=== PATIENT | male | born 1980 | race Caucasian/White ===

== ENCOUNTER 2017-09-09 10:45 | Observation (INO) ==
[2017-09-09 11:42] LABS: Basophils # 0.1 K/mcL (0.0-0.2); Basophils % 1.5 %; Eosinophils # 0.2 K/mcL (0.0-0.6); Hematocrit 59.8 % (37.5-50.1); Hemoglobin 20.1 g/dL (12.9-16.9); Immature Granulocytes % 0.2 % (0-4); Lymphocytes # 1.9 K/mcL (0.6-4.6); Lymphocytes % 36.5 %; Mean Corpuscular HGB Conc 33.6 g/dL (31.6-35.5); Mean Corpuscular Hemoglobin 34.1 pg (28.0-33.3); Mean Corpuscular Volume 101.5 fL (83.0-100.0); Mean Platelet Volume 11.5 fL (9.4-12.4); Monocytes # 0.6 K/mcL (0.0-1.3); Monocytes % 10.8 %; Neutrophils # 2.5 K/mcL (1.6-8.9); Platelet Count 186 K/mcL (140-400); Red Blood Count 5.89 M/mcL (4.19-5.50); Red Cell Distribution Width 14.1 % (11.5-14.5)
--- NOTE | 2017-09-09 11:55 | Emergency Department Note ---
Disposition Clinical Impression: Acute anxiety, Nonverbal, Hyperkalemia Depression Qualifiers: Depression Type: unspecified Qualified Code(s): F32.9 - Major depressive disorder, single episode, unspecified Deaf Qualifiers: Laterality: unspecified laterality Qualified Code(s): H91.90 - Unspecified hearing loss, unspecified ear Disposition: Admitted As Inpatient Condition: Fair Referrals: NONE,PCP [Primary Care Provider] - Forms: ED Satisfaction Letter Time of Disposition: 15:35 General Adult HPI - General Chief complaint: ED Psychiatric Symptoms Stated complaint: "anxiety,depression" Time Seen by Provider: 09/09/17 11:07 Source: patient Mode of arrival: ambulatory Limitations: language barrier Nursing Notes Reviewed: Yes Vital Signs Reviewed: Yes - History of Present Illness HPI Narrative: Patient presents emergency room in the care of the family with a complaint of depression and anxiety. Patient is nonverbal and . He also is now formally trained in sign language and communicates by signals and gestures that of been understood and created with the family. Only the family is able to communicate with him. Patient is unable to write and can only write his name. According to the family he denies any other symptoms or issues except that he has not been able to sleep and then at other times feels like he does not Ronel do anything and just wants to sit on the couch. No other acute issues or complaints per the father who is the primary care provider to the patient. Onset (ago): day(s) Radiation: non-radiation Pain Scale: 0 Consistency: constant Improves with: nothing Worsens with: nothing Associated symptoms: Reports: denies other symptoms Treatments Prior to Arrival: none - Related Data Home Medications Medication Instructions Recorded Confirmed Atenolol [Tenormin] 25 mg PO DAILY 09/09/17 Atenolol [Tenormin] 50 mg PO DAILY 09/09/17 Allergies Allergy/AdvReac Type Severity Reaction Status Date / Time azithromycin Allergy Rash Verified 01/29/15 17:16 All systems ED: reviewed and negative except as stated. Review of Systems: As Per HPI Constitutional: Denies: fever, chills Cardiovascular: Denies: chest pain, palpitations, dyspnea on exertion, orthopnea , edema Respiratory: Denies: cough, dyspnea, wheezes Gastrointestinal: Denies: abdominal pain, nausea, vomiting, diarrhea Musculoskeletal: Denies: back pain, neck pain Integumentary: Denies: rash Neurological: Denies: headache Psychiatric: Reports: depression, other Past Medical History - Past Medical History Attestation: Yes The following information was validated with the patient. Source: obtained from family Medical history: Reports: valvular heart disease, other Surgical history: Reports: other Psychiatric history: Reports: no psych history - Social History Smoking Status: Never smoker Smokeless Tobacco Status: No Alcohol use: Reports: none Drug use: Reports: none Physical Exam - General Limitations: language barrier General appearance: alert, in no apparent distress - Head Head exam: atraumatic, normocephalic, normal inspection - Eye Eye exam: Present: PERRL, EOMI - ENT ENT exam: normal exam, normal oropharynx, mucous membranes moist - Neck Neck exam: Present: normal inspection, full ROM, trachea midline - Chest Chest inspection: Present: normal inspection, symmetric chest wall rise - Respiratory Respiratory exam: Present: normal lung sounds bilaterally. Absent: respiratory distress - Cardiovascular Cardiovascular exam: Present: normal rhythm - Abdominal Exam Abdominal exam: Present: soft, Non-Tender. Absent: tenderness, distention, guarding, rebound, rigidity - Extremities Exam Extremities exam: Present: normal inspection - Back Exam Back exam: Present: normal inspection - Neurological Exam Neurological exam: Present: alert, CN II-XII intact - Psychiatric Psychiatric exam: Present: flat affect - Skin Skin exam: Present: warm, dry, intact, normal color Course Course Narrative: Patient seen and examined the time of arrival. See history of present illness. 37-year-old male who is nonverbal and presents emergency room at the request of the family for evaluation of anxiety and depression. Patient is not formally trained in sign language. He also does not have the ability to write. Patient's mental status is confirmed by the father and other family members are here with him. Denied patient having any other complaints or issues. The only way to communicate with the patient this time is to the family considering they have a developed means of conversation that is not formally trained. Patient does not sign and does not have any other means of treating medication except for the homemade sign language as they have created. This was ran through the medical legal department here in the hospital they recommended continuing 4 with the patient's care as best as possible considering the family will be the package sealer machine for the patient's care and recommended medical conditions. Patient was brought into the emergency room today secondary to the concern for depression and anxiety. Patient is not able to sleep at home and then goes through mood swings from other being manic and unable to sit still to the Jered sitting at the end of the couch and not moving or doing anything. Otherwise the family denies any complaint of chest pain shortness of breath headache vision changes nausea vomiting or diarrhea. No recent fevers or chills. No medications changes. 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 Patient otherwise has no other medical conditions this time. Physical exam is unremarkable. Lungs are clear heart appears to be regular EKG was collected with chronic abnormalities of the stable in comparison to previous. Chest x- ray CBC chemistry screening labs for psychiatric evaluation also be started. Patient otherwise has no signs of trauma or injury. He does have chronic mottling to the skin the distal aspect of the extremities but has no visible signs of cyanosis cellulitis or infection. Disposition treatment course are difficult to ascertain secondary to the inability to communicate directly with the patient will relying solely on the father who is at the bedside to converse and described the patient's symptoms or complaints. Again there is no way to directly converse with the patient considering he has no formal training in sign language or other means of communication at this time. No package sealer machine will be called in at this point considering there is no appropriate package sealer machine to contact. Patient will be screened here in the emergency room and evaluation will be completed - Reevaluation(s) Reevaluation #1: Patient's medical clearance was unable to be completed this time. His sodium is low 132 potassium is 5.3. Is a new finding for him. He does chronically elevated liver function as well as bilirubin. Otherwise is asymptomatic and has no other complaints after discussion with the father who is at the bedside. Because of the etiology being unknown. The lab abnormalities patient will be admitted to the medical service. Fluids and second dose of Lasix were given considering the patient's renal function is normal. No other acute abnormalities were noted during treatment course here today. Patient denied chest pain or shortness of breath and fevers and chills. Patient will be admitted. The hospitalist Dr. Patrick. Is comfortable with the plan for diuretics to lower the potassium at this point not aggressively getting calcium gluconate, Kayexalate or insulin dextrose at this point. Patient will be admitted for definitive management. No other acute pathology noted. Consultation was placed to psychiatry team further insight during the hospital stay Time: 15:32 Vital Signs Temperature 97.3 F L 09/09/17 10:46 Pulse Rate 80 09/09/17 10:46 Respiratory Rate 18 09/09/17 10:46 Blood Pressure 157/92 09/09/17 10:46 O2 Sat by Pulse Oximetry 85 09/09/17 10:46 Temperature 97.3 F L 09/09/17 11:20 Pulse Rate 82 09/09/17 12:24 Respiratory Rate 18 09/09/17 12:24 Blood Pressure 141/86 09/09/17 12:24 O2 Sat by Pulse Oximetry 90 09/09/17 12:24 Oxygen Delivery Oxygen Delivery Room Air Medical Decision Making - MDM Narrative Medical decision making narrative: Anxiety, depression - Medical Records Medical records reviewed: Yes I reviewed the patient's medical records. - Lab Data Lab results reviewed: Yes I reviewed the patient's lab results. Result diagrams: 09/09/17 11:28 09/09/17 13:13 Lab Results 09/09/17 09/09/17 09/09/17 Range/Units 11:28 11:28 11:28 WBC 5.3 (4.3-11.1) K/mcL RBC 5.89 H (4.19-5.50) M/mcL Hgb 20.1 H (12.9-16.9) g/dL Hct 59.8 H (37.5-50.1) % MCV 101.5 H (83.0-100.0) fL MCH 34.1 H (28.0-33.3) pg MCHC 33.6 (31.6-35.5) g/dL RDW 14.1 (11.5-14.5) % Plt Count 186 (140-400) K/mcL MPV 11.5 (9.4-12.4) fL Immature Gran % 0.2 (0-4) % Seg Neutrophils % 48.0 % Lymphocytes % 36.5 % Monocytes % 10.8 % Eosinophils % 3.0 % Basophils % 1.5 % Neutrophils # 2.5 (1.6-8.9) K/mcL Lymphocytes # 1.9 (0.6-4.6) K/mcL Monocytes # 0.6 (0.0-1.3) K/mcL Eosinophils # 0.2 (0.0-0.6) K/mcL Basophils # 0.1 (0.0-0.2) K/mcL Sodium Cancelled Potassium Cancelled Chloride Cancelled Carbon Dioxide Cancelled BUN Cancelled Creatinine Cancelled Est GFR ( Amer) Cancelled Est GFR (Non-Af Amer) Cancelled BUN/Creatinine Ratio Cancelled Glucose Cancelled Calculated Osmolality Cancelled Calcium Cancelled Total Bilirubin Cancelled Direct Bilirubin Cancelled Indirect Bilirubin Cancelled AST Cancelled ALT Cancelled Alkaline Phosphatase Cancelled Serum Total Protein Cancelled Albumin Cancelled Globulin Cancelled Albumin/Globulin Ratio Cancelled TSH 4.532 (0.340-5.600) mcIU/mL Urine Color (Yellow) Urine Clarity (Clear) Urine pH (5.0-8.0) pH Units Ur Specific [place] (1.010-1.025) Urine Protein (Neg-Trace) mg/dL Urine Glucose (UA) (Normal) mg/dL Urine Ketones (Negative) mg/dL Urine Blood (Negative) Urine Nitrite (Negative) Urine Bilirubin (Negative) Urine Urobilinogen (Normal) mg/dL Ur Leukocyte Esterase (Negative) Urine Microscopic RBC (0-3) per hpf Urine Microscopic WBC (0-3) per hpf Ur Squamous Epith Cells (None-Few) per lpf Urine Bacteria (None-Few) per hpf Hyaline Casts (None-Few) per lpf Salicylates < 2.5 L (15.0-30.0) mg/dL Urine Opiates Screen (Mydgnv=416) ng/mL Acetaminophen < 10 L (10-20) mcg/mL Ur Barbiturates Screen (Wuijsa=299) ng/mL Ur Phencyclidine Scrn (Cutoff=25) ng/mL Ur Amphetamines Screen (Gfpyce=7192) ng/mL U Benzodiazepines Scrn (Zfdmns=732) ng/mL Urine Cocaine Screen (Cutoff= 300) ng/mL U Marijuana (THC) Screen (Cutoff = 50) ng/mL Ethyl Alcohol < 10 (Less than 10) mg/dL Specimen Rejected Hemolyzed 09/09/17 09/09/17 09/09/17 Range/Units 11:50 11:56 13:13 WBC (4.3-11.1) K/mcL RBC (4.19-5.50) M/mcL Hgb (12.9-16.9) g/dL Hct (37.5-50.1) % MCV (83.0-100.0) fL MCH (28.0-33.3) pg MCHC (31.6-35.5) g/dL RDW (11.5-14.5) % Plt Count (140-400) K/mcL MPV (9.4-12.4) fL Immature Gran % (0-4) % Seg Neutrophils % % Lymphocytes % % Monocytes % % Eosinophils % % Basophils % % Neutrophils # (1.6-8.9) K/mcL Lymphocytes # (0.6-4.6) K/mcL Monocytes # (0.0-1.3) K/mcL Eosinophils # (0.0-0.6) K/mcL Basophils # (0.0-0.2) K/mcL Sodium 132 L Potassium 5.3 H Chloride 103 Carbon Dioxide 21 L BUN 23 H Creatinine 0.74 Est GFR ( Amer) > 60 Est GFR (Non-Af Amer) > 60 BUN/Creatinine Ratio 31 H Glucose 117 H Calculated Osmolality 279 L Calcium 9.1 Total Bilirubin 1.2 H Direct Bilirubin 0.1 Indirect Bilirubin 1.1 AST 60 H ALT 69 H Alkaline Phosphatase 228 H Serum Total Protein 6.5 Albumin 3.8 Globulin 2.7 Albumin/Globulin Ratio 1.4 TSH (0.340-5.600) mcIU/mL Urine Color Dark Yellow (Yellow) Urine Clarity Clear (Clear) Urine pH 5.5 (5.0-8.0) pH Units Ur Specific [place] 1.026 H (1.010-1.025) Urine Protein >=300 H (Neg-Trace) mg/dL Urine Glucose (UA) Normal (Normal) mg/dL Urine Ketones Negative (Negative) mg/dL Urine Blood Trace H (Negative) Urine Nitrite Negative (Negative) Urine Bilirubin Small H (Negative) Urine Urobilinogen Normal (Normal) mg/dL Ur Leukocyte Esterase Negative (Negative) Urine Microscopic RBC 3-5 H (0-3) per hpf Urine Microscopic WBC 0-3 (0-3) per hpf Ur Squamous Epith Cells Moderate H (None-Few) per lpf Urine Bacteria None Seen (None-Few) per hpf Hyaline Casts None Seen (None-Few) per lpf Salicylates (15.0-30.0) mg/dL Urine Opiates Screen Negative (Jpqvsg=328) ng/mL Acetaminophen (10-20) mcg/mL Ur Barbiturates Screen Negative (Oxewue=677) ng/mL Ur Phencyclidine Scrn Negative (Cutoff=25) ng/mL Ur Amphetamines Screen Negative (Uellea=0867) ng/mL U Benzodiazepines Scrn Negative (Fwtkqy=000) ng/mL Urine Cocaine Screen Negative (Cutoff= 300) ng/mL U Marijuana (THC) Screen Negative (Cutoff = 50) ng/mL Ethyl Alcohol (Less than 10) mg/dL Specimen Rejected - EKG Data EKG #1 EKG attestation: Yes I reviewed and interpreted this EKG. EKG results narrative: EKG shows chronic abnormalities. Sinus rhythm with premature ventricular complexes. Ventricular rate of 81. CA interval 200. QRS duration of 188. QTC of 517. This was compared to a previous EKG on 10/25/15 and shows consistent appropriate intervals. No acute signs of ST segment elevation abnormality or myocardial infarction at this time. No acute signs of WPW or Brugada syndrome.
[2017-09-09 12:27] LABS: Acetaminophen < 10 mcg/mL (10-20); Thyroid Stimulating Hormone 4.532 mcIU/mL (0.340-5.600)
[2017-09-09 12:35] LABS: Ethanol < 10 mg/dL (Less than 10); Salicylate < 2.5 mg/dL (15.0-30.0)
[2017-09-09 12:55] LABS: Bilirubin,Urine Small (Negative); Blood,Urine Trace (Negative); Clarity,Urine Clear (Clear); Color,Urine Dark Yellow (Yellow); Glucose,Urine (UA) Normal (Normal); Ketones,Urine Negative (Negative); Leukocyte Esterase,Urine Negative (Negative); Nitrite,Urine Negative (Negative); PH,Urine 5.5 pH Units (5.0-8.0); Protein,Urine >=300 mg/dL (Neg-Trace); Specific Gravity,Urine 1.026 (1.010-1.025); Urobilinogen,Urine Normal (Normal)
[2017-09-09 12:58] LABS: Bacteria,Urine None Seen per hpf (None-Few); Hyaline Casts,Urine None Seen per lpf (None-Few); Squamous Epithelial Cell,Urine Moderate per lpf (None-Few); WBC,Urine 0-3 per hpf (0-3)
[2017-09-09 13:43] LABS: Amphetamine Screen,Urine Negative ng/mL (Cutoff=1000); Barbiturate Screen,Urine Negative ng/mL (Cutoff=200); Benzodiazepines Screen,Urine Negative ng/mL (Cutoff=200); Cannabinoid Screen,Urine Negative ng/mL (Cutoff = 50); Cocaine Screen,Urine Negative ng/mL (Cutoff= 300); Opiate Screen,Urine Negative ng/mL (Cutoff=300); Phencyclidine Screen,Urine Negative ng/mL (Cutoff=25)
[2017-09-09 14:44] LABS: Alanine Aminotransferase 69 Units/L (7-52); Albumin 3.8 g/dL (3.5-5.7); Albumin/Globulin Ratio 1.4 (1.1-2.2); Alkaline Phosphatase 228 Units/L (34-104); Aspartate Amino Transferase 60 Units/L (13-39); BUN/Creatinine Ratio 31 (6-26); Bilirubin,Indirect 1.1 mg/dL (0.0-1.2); Bilirubin,Total 1.2 mg/dL (0.3-1.0); Blood Urea Nitrogen 23 mg/dL (6-20); Calcium 9.1 mg/dL (8.6-10.3); Carbon Dioxide 21 mEq/L (23-29); Chloride 103 mEq/L (98-107); Globulin 2.7 g/dL (2.4-3.5); Glucose 117 mg/dL (70-105); Osmolality,Calculated 279 (280-300); Potassium 5.3 mEq/L (3.5-5.1); Sodium 132 mEq/L (136-145); Total Protein 6.5 g/dL (6.4-8.9); eGFR For African Americans > 60 (> 60); eGFR For Non-African Americans > 60 (> 60)
[2017-09-09 14:45] LABS: Bilirubin,Direct 0.1 mg/dL (0.0-0.2)
[2017-09-09] MEDS ORDERED: 0.9 % Sodium Chloride 1,000 ML IVC ONE (15:00)
[2017-09-09] MEDS ORDERED: Furosemide 20 MG/2 ML VIAL IVP ONE (15:01)
[2017-09-09] MEDS ORDERED: Naloxone 0.4 MG/ML INJ IVP PRN (18:05)
[2017-09-09] MEDS ORDERED: Acetaminophen 325 MG TABLET PO PRN (18:05)
[2017-09-09] MEDS ORDERED: *HR* LORazepam 2 MG/ML VIAL IVP PRN (18:09)
[2017-09-09] MEDS: 0.9 % Sodium Chloride 1,000 ML IVC SCH (18:14)
--- NOTE | 2017-09-09 18:14 | Internal Med History&Physical ---
Date of Encounter: 09/09/17 Time of Encounter: 17:37 Internal Medicine - H&P: HPI Chief complaint: Anxiety Admitted From: Emergency Dept Plans for Post Hospital Care: Home History of present illness: Mr. Espinoza is a 37 year old male with PMH of Ebstein's anomaly of heart, non- verbal, deaf, and illiterate, who presented to ED today with father who states that he has been acting anxious. This has been going on for last several months. Father states that patient's mother about 1 year ago. Recently, he has been acting anxious and waking up from sleeping shaking and scared, as if he had a nightmare. Sometimes he wakes up suddenly and violently , and hits his arms or legs on something. Patient is non-verbal and cannot communicate to me. However, father can communicate with hand gestures. Father states that patient is doing ok at this time. Patient currently shows no signs of anxiety at this time. In the ED, workup was negative except mild hyperkalemia to 5.2. He received 1L IV NS and lasix 20 mg IV once in ED. Psychiatrist has been consulted by ED, and they agree to see patient. I am unable to perform a ROS on patient because of his non-verbal and deaf state. Past Med Surg Social Fam HX - Past Medical History Source: obtained from family Medical history: valvular heart disease, other Additional medical history: meningitis Psychiatric history: no psych history - Past Surgical History Surgical History: other Additional surgical history: valvular heart - Social History Smoking Status: Never smoker Smokeless Tobacco Status: No Alcohol use: none Drug use: none - Family History Mother Living Status: Age at : 47 Cause of : CT Hx Family Cardiac Disorders: Yes Father Living Status: Still Living Sister Age: 38 Living Status: Still Living Hx Family Cardiac Disorders: Yes Hx Family Neurologic Disorders: Yes (CVA) - Additional Family History Additional family history: Family history verified with father. Internal Medicine - H&P: Meds Aspirin [Lo-Dose Aspirin EC] 81 mg PO DAILY 09/09/17 [History] Atenolol [Tenormin] 25 mg PO QPM 09/09/17 [History] Atenolol [Tenormin] 50 mg PO QAM 09/09/17 [History] 3 Allergy/AdvReac Type Severity Reaction Status Date / Time azithromycin Allergy Rash Verified 01/29/15 17:16 All Systems PM: Unable to perform due to patient condition of non-verbal and deaf status. - Constitutional Vitals: Temp Pulse Resp BP Pulse Ox 98.1 F 100 17 143/96 92 09/09/17 16:50 09/09/17 16:50 09/09/17 16:50 09/09/17 16:50 09/09/17 16:50 General appearance: Present: cooperative, pleasant, no acute distress. Absent: answers questions appropriately Exam: Non-verbal - Head Head exam: Present: atraumatic, normal inspection, normocephalic - Eye Eye exam: Present: EOMI, PERRL. Absent: conjunctival injection, nystagmus, scleral icterus - ENT ENT exam: Present: mucous membranes moist, normal external ear exam, normal oropharynx Additional comments: Deaf - Neck Neck exam general surgery: Present: supple, trachea midline. Absent: lymphadenopathy, tenderness, thyromegaly - Respiratory Respiratory exam: Present: CTAB. Absent: accessory muscle use, rales, rhonchi, wheezes Additional comments: Normal WOB - Cardiovascular Cardiovascular exam: Present: RRR, +S1, +S2, systolic murmur. Absent: diastolic murmur, gallop, rubs Additional comments: No BLE edema - GI/Abdominal GI/Abdominal exam: Present: normal bowel sounds, soft. Absent: distended, hepatomegaly, mass, splenomegaly, tenderness - Neurological Exam Neurological exam: Present: alert, no focal deficits, strengths equal and symetr throughout, speech deficit (Non-verbal). Absent: motor sensory deficit, facial droop Additional comments: Unable to fully evaluate due to patient condition of non-verbal and deaf status - Psychiatric Psychiatric exam: Present: normal affect, normal mood. Absent: agitated, anxious, depressed Additional comments: Unable to fully evaluate due to patient condition of non-verbal and deaf status. - Skin Skin exam: Present: dry, intact, warm. Absent: cyanosis, rash Internal Med - H&P Results - Labs CBC & Chem 7: 09/09/17 11:28 09/09/17 13:13 - VTE Documentation of Mechanical Device: Intermittent pneumatic compression device - Assessment and plan (1) Hyperkalemia Current Visit: Yes Status: Acute Assessment and plan: Mild. Admit for observation with telemetry. Continue IV NS at 100 ml/hr. Monitor strict I&Os. Give kayexalate 30 gram PO once. Recheck BMP in AM. (2) Acute anxiety Current Visit: Yes Status: Acute Assessment and plan: Psychiatry consulted; appreciate input. Start ativan 1 mg IV Q6H PRN anxiety. (3) Ebstein anomaly Current Visit: Yes Status: Acute Assessment and plan: Continue home medications. Continue telemetry. (4) Deaf Current Visit: Yes Status: Acute Assessment and plan: Speech therapy consulted. Qualifiers: Laterality: bilateral Qualified Code(s): H91.93 - Unspecified hearing loss , bilateral (5) Nonverbal Current Visit: Yes Status: Acute Assessment and plan: Speech therapy consulted. (6) DVT prophylaxis Current Visit: Yes Status: Acute Assessment and plan: Low-risk. Start SCDs. - Time Spent With Patient Total time spent is greater than 50% in coordination of care (as documented) at patient's floor/unit and/or counseling patient: less than 15 minutes
[2017-09-09] MEDS: Aspirin Enteric Coated 81 MG Tablet PO SCH (18:26)
[2017-09-10] MEDS: 0.9 % Sodium Chloride 1,000 ML IVC SCH ×2 (04:16→16:23)
[2017-09-10 05:39] LABS: Basophils # 0.1 K/mcL (0.0-0.2); Basophils % 0.9 %; Eosinophils # 0.1 K/mcL (0.0-0.6); Eosinophils % 1.4 %; Hematocrit 53.2 % (37.5-50.1); Immature Granulocytes % 0.2 % (0-4); Lymphocytes # 1.6 K/mcL (0.6-4.6); Lymphocytes % 27.7 %; Mean Corpuscular HGB Conc 34.8 g/dL (31.6-35.5); Mean Corpuscular Volume 97.8 fL (83.0-100.0); Monocytes # 0.7 K/mcL (0.0-1.3); Monocytes % 11.1 %; Neutrophils # 3.5 K/mcL (1.6-8.9); Platelet Count 157 K/mcL (140-400); Red Blood Count 5.44 M/mcL (4.19-5.50); Red Cell Distribution Width 13.8 % (11.5-14.5); Segmented Neutrophils % 58.7 %
[2017-09-10 05:42] LABS: Hemoglobin 18.5 g/dL (12.9-16.9)
[2017-09-10 05:47] LABS: BUN/Creatinine Ratio 23 (6-26); Blood Urea Nitrogen 19 mg/dL (6-20); Calcium 7.9 mg/dL (8.6-10.3); Carbon Dioxide 22 mEq/L (23-29); Chloride 105 mEq/L (98-107); Chol/HDL Ratio 4.2 (0-4.9); Cholesterol 183 mg/dL (< 200); Glucose 88 mg/dL (70-105); HDL Cholesterol 44 mg/dL (40-59); LDL Cholesterol,Calculated 111 mg/dL (0-99); Magnesium 1.6 mg/dL (1.6-2.6); Osmolality,Calculated 284 (280-300); Potassium 3.9 mEq/L (3.5-5.1); Sodium 136 mEq/L (136-145); Triglycerides 139 mg/dL (< 150); eGFR For African Americans > 60 (> 60); eGFR For Non-African Americans > 60 (> 60)
[2017-09-10] MEDS: Aspirin Enteric Coated 81 MG Tablet PO SCH (07:31)
[2017-09-10] MEDS ORDERED: *HR* LORazepam 2 MG/ML VIAL IVP PRN (09:51)
--- NOTE | 2017-09-10 10:17 | Internal Med Progress Note ---
Date of Encounter: 09/10/17 Time of Encounter: 10:15 - Assessment and plan (1) Acute anxiety Current Visit: Yes Status: Acute Assessment and plan: Patient is non-verbal, and deaf father at bedside to assisting with communication Reporting anxiety greater than 1 month with frequent nightime awakenings with panic attacks Patient followed reports lorazepam is helping with anxiety However, per my assessment patient still appears to be somewhat anxious Psychiatry consulted; appreciate input. Start citalopram 10 mg daily Start ativan 0.5 mg IV Q8H PRN anxiety. (2) Deaf Current Visit: Yes Status: Acute Assessment and plan: speech therapy to see Qualifiers: Laterality: bilateral Qualified Code(s): H91.93 - Unspecified hearing loss , bilateral (3) Nonverbal Current Visit: Yes Status: Acute (4) Hyperkalemia Current Visit: Yes Status: Acute Assessment and plan: Resolved Monitor strict I&Os Recheck BMP in AM continue IVF (5) Ebstein anomaly Current Visit: Yes Status: Acute Assessment and plan: History of Ebstein's anomaly Remote history of Bioprosthetic valve replacement Continue home medications. Continue telemetry. (6) Transaminitis Current Visit: Yes Status: Acute Assessment and plan: Etiology unclear No prior history of liver disease Does not appear jaundiced, sclera nonicteric Denies any weight loss, nausea, vomiting Recheck hepatic panel (7) DVT prophylaxis Current Visit: Yes Status: Acute Assessment and plan: Low-risk. Start SCDs, early ambulation as tolerated - Time Spent With Patient Total time spent is greater than 50% in coordination of care (as documented) at patient's floor/unit and/or counseling patient: 25 - 35 minutes - Subjective Interval history: Patient seen and examined at bedside today. No acute changes overnight. Patient is deaf and mute. Father bedside to assist with communication. Father is reporting that his anxiety is now subsided with the addition of anxiolytic medications. - Constitutional Vitals: Temp Pulse Resp BP Pulse Ox 98.4 F 81 18 131/86 90 09/10/17 08:32 09/10/17 08:32 09/10/17 08:32 09/10/17 08:32 09/10/17 08:32 General appearance: Present: cooperative, pleasant, no acute distress. Absent: answers questions appropriately - Head Head exam: Present: atraumatic, normocephalic - Eye Eye exam: Present: EOMI, PERRL, conjuntiva pink, sclera anicteric Pupils: Present: PERRL - Neck Neck exam general surgery: Present: supple, trachea midline. Absent: lymphadenopathy - Respiratory Respiratory exam: Present: CTAB. Absent: accessory muscle use, rales, rhonchi, wheezes - Cardiovascular Cardiovascular exam: Present: RRR, +S1, +S2. Absent: diastolic murmur, gallop, rubs, systolic murmur - GI/Abdominal GI/Abdominal exam: Present: normal bowel sounds, soft, no peritoneal signs. Absent: distended, tenderness - Extremities Exam Extremities exam: Present: warm, radial pulses palpable and symmetrical. Absent : calf tenderness, cyanotic, pedal edema - Neurological Exam Neurological exam: Present: CN II-XII intact, oriented X3, no focal deficits. Absent: pronater drift, facial droop, speech deficit - Skin Skin exam: Present: dry, intact, normal color, warm Internal Medicine: Result - Labs CBC & Chem 7: 09/10/17 04:24 09/10/17 04:24 Labs: Short CBC 09/10/17 Range/Units 04:24 WBC 5.9 (4.3-11.1) K/mcL Hgb 18.5 H D (12.9-16.9) g/dL Hct 53.2 H (37.5-50.1) % Plt Count 157 (140-400) K/mcL Neutrophils # 3.5 (1.6-8.9) K/mcL BMP 09/10/17 04:24 Sodium 136 Potassium 3.9 D Chloride 105 Carbon Dioxide 22 L BUN 19 Creatinine 0.81 Glucose 88 Calcium 7.9 L - VTE Documentation of Mechanical Device: Intermittent pneumatic compression device Consult Discharge Plan - Plan Referrals: NONE,PCP [Primary Care Provider] -
--- NOTE | 2017-09-10 10:46 | Electrocardiograph Report ---
[place] [facility] Test Date: 2017-09-09 Pat Name: Gera Espinoza Department: 103 Room: 3B23 Gender: M Mold Shifter: : 1980 Requested By: Lenin Bowser Order Number: [id number] Reading MD: Erick Anderson Measurements Intervals Sacul Rate: 81 P: 48 AL: 200 QRS: 95 QRSD: 188 T: 24 QT: 480 QTc: 517 Interpretive Statements SINUS RHYTHM WITH OCCASIONAL VENTRICULAR PREMATURE COMPLEXES RIGHT BUNDLE BRANCH BLOCK Electronically Signed On 09-10-2017 10:44:54 EDT by Erick Anderson
[2017-09-10 14:49] LABS: Albumin 3.4 g/dL (3.5-5.7)
[2017-09-10 15:27] LABS: Alanine Aminotransferase 65 Units/L (7-52); Albumin/Globulin Ratio 1.5 (1.1-2.2); Alkaline Phosphatase 190 Units/L (34-104); Aspartate Amino Transferase 57 Units/L (13-39); Bilirubin,Direct 0.2 mg/dL (0.0-0.2); Bilirubin,Indirect 1.2 mg/dL (0.0-1.2); Bilirubin,Total 1.4 mg/dL (0.3-1.0); Globulin 2.2 g/dL (2.4-3.5); Total Protein 5.6 g/dL (6.4-8.9)
[2017-09-11] MEDS: 0.9 % Sodium Chloride 1,000 ML IVC SCH
[2017-09-11] MEDS: Aspirin Enteric Coated 81 MG Tablet PO SCH (07:59)
--- NOTE | 2017-09-11 11:42 | Discharge Summary ---
- NOTES TO OUTPATIENT PROVIDER Notes to Outpatient Provider: Patient anxious on admission. Improved with anxiolytics. Patient being discharged on citalopram 10 mg daily. To follow-up with PCP within 1 week of discharge. Set follow-up with resident clinic physician. Nothing pending on discharge. Date of Encounter: 09/11/17 Time of Encounter: 11:40 - Discharge Diagnosis (1) Acute anxiety Priority: Primary Status: Acute Assessment and Plan: Resolved Patient is non-verbal, and deaf father at bedside to assisting with communication Reporting anxiety greater than 1 month with frequent nightime awakenings with panic attacks Received insulin therapy while inpatient and nighttime awakenings and panic attacks have resolved Started citalopram yesterday, Continue citalopram at discharge Uneventful hospital course. Panic attacks have resolved. Patient does not have a primary care provider. Will be set up with the resident clinic upon discharge with a follow-up within 1 week. Father has been notified that he would need to follow-up with PCP within 1 week of discharge. Father verbalizes understanding, denies any further questions. 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 Espinoza is a 37 year old male Please see assessment and plan for hospital course Discharge discussed with: patient, family, nurse - Time Spent with Patient Total time spent providing and/or coordinating discharge services: Less than 30 minutes - Discharge Medications Prescriptions: Citalopram [CeleXA] 10 mg PO DAILY 30 Days #30 tablet Home Medications: Aspirin [Lo-Dose Aspirin EC] 81 mg PO DAILY 09/09/17 [History] Atenolol [Tenormin] 25 mg PO QPM 09/09/17 [History] Atenolol [Tenormin] 50 mg PO QAM 09/09/17 [History] Citalopram [CeleXA] 10 mg PO DAILY 30 Days #30 tablet 09/11/17 [Rx] Allergies/Adverse Reactions: 3 Allergy/AdvReac Type Severity Reaction Status Date / Time azithromycin Allergy Rash Verified 01/29/15 17:16 Date of admission: 09/09/17 16:09 Primary care physician: PCP NONE Consults: 09/09/17 16:28 Consult to Speech Therapy [CONS] Stat Comment: Evaluate, develop and implement POC Reason for Consult: Non-verbal. Needs way to communicate. Thanks. Call Completed: No 09/09/17 18:07 Consult to Ice Handler [CONS] Routine Reason for SW Consult: Discharge Planning Discharging clinician: Enio Irving Anticipated date of discharge: 09/11/17 - Constitutional Vitals: Temp Pulse Resp BP Pulse Ox 97.6 F 74 16 121/76 92 09/11/17 07:35 09/11/17 07:35 09/11/17 07:35 09/11/17 07:35 09/11/17 07:35 General appearance: Present: cooperative, pleasant, no acute distress. Absent: answers questions appropriately Exam: Deaf and mute, father at bedside assisting with communication - Head Head exam: Present: atraumatic, normocephalic - Eye Eye exam: Present: PERRL, conjuntiva pink, sclera anicteric Pupils: Present: PERRL - Neck Neck exam general surgery: Present: supple, trachea midline. Absent: lymphadenopathy - Respiratory Respiratory exam: Present: CTAB. Absent: accessory muscle use, rales, rhonchi, wheezes - Cardiovascular Cardiovascular exam: Present: RRR, +S1, +S2. Absent: diastolic murmur, gallop, rubs, systolic murmur - GI/Abdominal GI/Abdominal exam: Present: normal bowel sounds, soft, no peritoneal signs. Absent: distended, tenderness - Extremities Exam Extremities exam: Present: warm, radial pulses palpable and symmetrical. Absent : calf tenderness, cyanotic, pedal edema - Neurological Exam Neurological exam: Present: CN II-XII intact, oriented X3, no focal deficits. Absent: pronater drift, facial droop, speech deficit - Skin Skin exam: Present: dry, intact Additional comments: Multiple superficial abrasions noted to bilateral forearms very stages of healing. No erythema noted, no swelling noted. Does not appear to be infective - Patient Status Disposition: Home, Self-Care Condition: Fair Overall status at discharge: patient is back to baseline - Discharge Instructions Instructions: Anxiety (DC) Follow Up With: NONE,PCP [Primary Care Provider] - - Diet and Activity Activity: increase activity as tolerated, resume usual activities as tolerated Diet: advance to your usual diet - VTE Documentation of Mechanical Device: Intermittent pneumatic compression device
[2017-09-11 12:11] VITALS: BP 158/102
== END 2017-09-11 15:00 | disposition home or self-care (01) ==
LOC: EMEROO 10:45 → 3BNU 10:45
PROVIDERS: ADMIT Family Medicine; ATTEND Family Medicine

== ENCOUNTER 2021-01-06 10:27 | Inpatient (IN) ==
[2021-01-06 12:09] LABS: Bilirubin,Urine Small (Negative); Blood,Urine Negative (Negative); Clarity,Urine Clear (Clear); Color,Urine Orange (Yellow); Glucose,Urine (UA) Normal (Normal); Ketones,Urine Negative (Negative); Leukocyte Esterase,Urine Negative (Negative); Nitrite,Urine Negative (Negative); PH,Urine 5.5 pH Units (5.0-8.0); Protein,Urine Trace mg/dL (Neg-Trace); Specific Gravity,Urine 1.024 (1.010-1.025)
[2021-01-06 13:02] LABS: Basophils % 0.5 %; Eosinophils % 0.5 %; Hematocrit 48.3 % (37.5-50.1); Hemoglobin 15.6 g/dL (12.9-16.9); Immature Granulocytes % 0.5 % (0-4); Lymphocytes # 0.6 K/mcL (0.6-4.6); Lymphocytes % 14.2 %; Mean Corpuscular HGB Conc 32.3 g/dL (31.6-35.5); Mean Corpuscular Hemoglobin 35.8 pg (28.0-33.3); Mean Corpuscular Volume 110.8 fL (83.0-100.0); Mean Platelet Volume 10.7 fL (9.4-12.4); Monocytes # 0.3 K/mcL (0.0-1.3); Monocytes % 6.5 %; Neutrophils # 3.1 K/mcL (1.6-8.9); Platelet Count 223 K/mcL (140-400); Red Blood Count 4.36 M/mcL (4.19-5.50); Red Cell Distribution Width 16.3 % (11.5-14.5); Segmented Neutrophils % 77.8 %
[2021-01-06 13:19] LABS: BUN/Creatinine Ratio 22 (6-26); Blood Urea Nitrogen 22 mg/dL (6-20); Calcium 9.5 mg/dL (8.6-10.3); Carbon Dioxide 22 mEq/L (23-29); Chloride 96 mEq/L (98-107); Glucose 88 mg/dL (70-105); Osmolality,Calculated 273 (280-300); Potassium 4.4 mEq/L (3.5-5.1); Sodium 130 mEq/L (136-145); eGFR For African Americans > 60 (> 60); eGFR For Non-African Americans > 60 (> 60)
[2021-01-06 13:49] LABS: Macrocytosis Present (Not Present); Platelet Estimate Normal (Normal)
[2021-01-06 13:56] LABS: Alanine Aminotransferase 39 Units/L (7-52); Albumin/Globulin Ratio 1.2 (1.1-2.2); Alkaline Phosphatase 339 Units/L (34-104); Aspartate Amino Transferase 54 Units/L (13-39); Bilirubin,Direct 2.1 mg/dL (0.0-0.2); Bilirubin,Total 6.1 mg/dL (0.3-1.0); Globulin 3.3 g/dL (2.4-3.5); Total Protein 7.3 g/dL (6.4-8.9)
[2021-01-06] MEDS ORDERED: Isovue-370 500 ML BOTTLE IVP ONE ×2 (14:21→17:37)
[2021-01-06] MEDS ORDERED: Morphine Sulfate 2 MG/ML SYRINGE IVP ONE (16:24)
[2021-01-06 17:01] LABS: Adenovirus Not Detected (Not Detect); Bordetella Pertussis Not Detected (Not Detect); Chlamydophila pneumoniae Not Detected (Not Detect); Coronavirus 229E Not Detected (Not Detect); Coronavirus HKU1 Not Detected (Not Detect); Coronavirus NL63 Not Detected (Not Detect); Coronavirus OC43 Not Detected (Not Detect); Human Metapneumovirus Not Detected (Not Detect); Human Rhinovirus/Enterovirus Not Detected (Not Detect); Influenza A Subtype 2009 H1 Not Detected (Not Detect); Influenza B Not Detected (Not Detect); Mycoplasma pneumoniae Not Detected (Not Detect); Parainfluenza Virus 1 Not Detected (Not Detect); Parainfluenza Virus 2 Not Detected (Not Detect); Parainfluenza Virus 3 Not Detected (Not Detect); Parainfluenza Virus 4 Not Detected (Not Detect); Respiratory Syncytial Virus Not Detected (Not Detect); SARS-CoV-2 Not Detected (Not Detect)
[2021-01-06 17:09] LABS: Immature Reticulocyte % 33.9 % (11.0-38.0); Reticulocyte % 11.5 % (1.6-2.8)
[2021-01-06 17:29] LABS: Lactate Dehydrogenase 307 Units/L (140-271)
[2021-01-06] MEDS ORDERED: Gadolinium Contrast Agent (WT Based) IV PRN (20:09)
[2021-01-06] MEDS ORDERED: Naloxone 0.4 MG/ML INJ IVP PRN (20:30)
[2021-01-06] MEDS ORDERED: Melatonin 3 MG TABLET PO PRN (20:30)
[2021-01-06] MEDS ORDERED: Ondansetron ODT 4 MG TAB.RAPDIS SL PRN (20:30)
[2021-01-06 21:13] LABS: Lipase 22 Units/L (11-82)
[2021-01-06] MEDS: clonazePAM 0.5 MG TABLET PO SCH (22:04)
[2021-01-06] MEDS: atenoloL 25 MG TABLET PO SCH (22:50)
[2021-01-07] MEDS: MetroNIDAZOLE 500 MG/100 ML 500 MG/100 ML BAG IVPB SCH ×3 (00:40→17:16)
[2021-01-07] MEDS ORDERED: *HR* Heparin 5,000 UNIT/ML VIAL SQ SCH (06:00)
[2021-01-07] MEDS: clonazePAM 0.5 MG TABLET PO SCH ×2 (09:21→21:25)
[2021-01-07] MEDS: atenoloL 50 MG TABLET PO SCH (09:21)
[2021-01-07] MEDS ORDERED: GADOBUTROL 30 MMOL/30 ML VIAL IVP ONE (09:49)
[2021-01-07 09:58] LABS: Basophils % 0.4 %; Eosinophils % 0.2 %; Hematocrit 52.1 % (37.5-50.1); Immature Granulocytes % 0.4 % (0-4); Lymphocytes # 0.4 K/mcL (0.6-4.6); Lymphocytes % 8.4 %; Mean Corpuscular HGB Conc 32.6 g/dL (31.6-35.5); Mean Corpuscular Hemoglobin 36.6 pg (28.0-33.3); Mean Platelet Volume 9.9 fL (9.4-12.4); Monocytes # 0.3 K/mcL (0.0-1.3); Monocytes % 7.1 %; Platelet Count 192 K/mcL (140-400); Red Blood Count 4.65 M/mcL (4.19-5.50); Red Cell Distribution Width 16.2 % (11.5-14.5); Segmented Neutrophils % 83.5 %; White Blood Count 4.6 K/mcL (4.3-11.1)
[2021-01-07 10:01] LABS: Neutrophils # 3.8 K/mcL (1.6-8.9)
[2021-01-07 10:16] LABS: INR 1.2; Prothrombin Time 13.6 Seconds (9.4-12.1)
[2021-01-07 10:25] LABS: % Iron Saturation 91 % (20-55); Alanine Aminotransferase 32 Units/L (7-52); Albumin 3.9 g/dL (3.5-5.7); Albumin/Globulin Ratio 1.3 (1.1-2.2); Alkaline Phosphatase 302 Units/L (34-104); Aspartate Amino Transferase 43 Units/L (13-39); BUN/Creatinine Ratio 21 (6-26); Bilirubin,Direct 1.6 mg/dL (0.0-0.2); Bilirubin,Indirect 3.7 mg/dL (0.0-1.0); Bilirubin,Total 5.3 mg/dL (0.3-1.0); Blood Urea Nitrogen 18 mg/dL (6-20); Calcium 9.2 mg/dL (8.6-10.3); Carbon Dioxide 22 mEq/L (23-29); Chloride 95 mEq/L (98-107); Globulin 3.1 g/dL (2.4-3.5); Glucose 104 mg/dL (70-105); Iron 303 mcg/dL (65-175); Magnesium 1.8 mg/dL (1.6-2.6); Osmolality,Calculated 266 (280-300); Phosphorous 3.4 mg/dL (2.7-4.5); Potassium 4.3 mEq/L (3.5-5.1); Sodium 127 mEq/L (136-145); Transferrin 238 mg/dL (203-362); eGFR For African Americans > 60 (> 60); eGFR For Non-African Americans > 60 (> 60)
[2021-01-07 10:32] LABS: Anisocytosis 1+ (Not Present); Macrocytosis Present (Not Present); Platelet Estimate Normal (Normal)
[2021-01-07 10:53] LABS: Hepatitis B Surface Antigen Nonreactive (Nonreactive)
[2021-01-07 11:22] LABS: Hepatitis C Virus Antibody Nonreactive (Nonreactive)
[2021-01-07 11:23] LABS: Hepatitis B Core IgM Nonreactive (Nonreactive)
[2021-01-07 11:24] LABS: Hepatitis A Antibody IgM Nonreactive (Nonreactive)
[2021-01-07] MEDS: atenoloL 25 MG TABLET PO SCH (19:41)
[2021-01-08] MEDS: MetroNIDAZOLE 500 MG/100 ML 500 MG/100 ML BAG IVPB SCH ×3 (00:57→17:03)
[2021-01-08 05:51] LABS: Basophils % 0.5 %; Eosinophils # 0.1 K/mcL (0.0-0.6); Eosinophils % 2.1 %; Hematocrit 43.8 % (37.5-50.1); Immature Granulocytes % 0.2 % (0-4); Lymphocytes # 0.8 K/mcL (0.6-4.6); Lymphocytes % 18.9 %; Mean Corpuscular HGB Conc 33.1 g/dL (31.6-35.5); Mean Corpuscular Hemoglobin 36.3 pg (28.0-33.3); Mean Corpuscular Volume 109.8 fL (83.0-100.0); Mean Platelet Volume 10.3 fL (9.4-12.4); Monocytes # 0.5 K/mcL (0.0-1.3); Monocytes % 10.9 %; Platelet Count 217 K/mcL (140-400); Red Blood Count 3.99 M/mcL (4.19-5.50); Red Cell Distribution Width 15.9 % (11.5-14.5); Segmented Neutrophils % 67.4 %; White Blood Count 4.4 K/mcL (4.3-11.1)
[2021-01-08 05:52] LABS: Hemoglobin 14.5 g/dL (12.9-16.9)
[2021-01-08 06:13] LABS: Alanine Aminotransferase 21 Units/L (7-52); Albumin/Globulin Ratio 1.3 (1.1-2.2); Alkaline Phosphatase 217 Units/L (34-104); Aspartate Amino Transferase 27 Units/L (13-39); BUN/Creatinine Ratio 20 (6-26); Bilirubin,Direct 1.2 mg/dL (0.0-0.2); Bilirubin,Indirect 2.5 mg/dL (0.0-1.0); Bilirubin,Total 3.7 mg/dL (0.3-1.0); Blood Urea Nitrogen 17 mg/dL (6-20); Calcium 8.4 mg/dL (8.6-10.3); Carbon Dioxide 23 mEq/L (23-29); Chloride 100 mEq/L (98-107); Globulin 2.4 g/dL (2.4-3.5); Glucose 82 mg/dL (70-105); Osmolality,Calculated 273 (280-300); Potassium 3.6 mEq/L (3.5-5.1); Sodium 131 mEq/L (136-145); Total Protein 5.4 g/dL (6.4-8.9); eGFR For African Americans > 60 (> 60); eGFR For Non-African Americans > 60 (> 60)
[2021-01-08] MEDS: atenoloL 50 MG TABLET PO SCH (08:43)
[2021-01-08] MEDS: clonazePAM 0.5 MG TABLET PO SCH ×2 (08:43→20:38)
[2021-01-08 13:08] LABS: Hematocrit 46.6 % (37.5-50.1); Hemoglobin 15.5 g/dL (12.9-16.9)
[2021-01-08] MEDS: atenoloL 25 MG TABLET PO SCH (18:22)
[2021-01-08 22:23] LABS: Basophils % 0.7 %; Eosinophils # 0.1 K/mcL (0.0-0.6); Eosinophils % 2.3 %; Hematocrit 42.4 % (37.5-50.1); Immature Granulocytes % 0.5 % (0-4); Lymphocytes # 0.8 K/mcL (0.6-4.6); Lymphocytes % 17.4 %; Mean Corpuscular Hemoglobin 35.8 pg (28.0-33.3); Mean Corpuscular Volume 108.4 fL (83.0-100.0); Mean Platelet Volume 10.5 fL (9.4-12.4); Monocytes # 0.5 K/mcL (0.0-1.3); Monocytes % 12.5 %; Neutrophils # 2.9 K/mcL (1.6-8.9); Platelet Count 201 K/mcL (140-400); Red Blood Count 3.91 M/mcL (4.19-5.50); Red Cell Distribution Width 15.9 % (11.5-14.5); Segmented Neutrophils % 66.6 %; White Blood Count 4.3 K/mcL (4.3-11.1)
[2021-01-08] MEDS ORDERED: 0.9 % Sodium Chloride 250 ML ONE (22:48)
[2021-01-09] MEDS: MetroNIDAZOLE 500 MG/100 ML 500 MG/100 ML BAG IVPB SCH ×2 (00:56→09:42)
[2021-01-09] MEDS ORDERED: metroNIDAZOLE 500 MG TABLET PO ONE (02:20)
[2021-01-09] MEDS ORDERED: 0.9 % Sodium Chloride 250 ML ONE (02:28)
[2021-01-09 07:18] LABS: Immature Reticulocyte % 23.2 % (11.0-38.0); Retculocyte # 0.35 M/mcL (0.05-0.10); Reticulocyte % 7.7 % (1.6-2.8)
[2021-01-09 07:25] LABS: Basophils % 0.8 %; Eosinophils # 0.1 K/mcL (0.0-0.6); Eosinophils % 1.8 %; Hematocrit 48.9 % (37.5-50.1); Immature Granulocytes % 0.5 % (0-4); Lymphocytes # 0.7 K/mcL (0.6-4.6); Lymphocytes % 18.5 %; Mean Corpuscular HGB Conc 32.9 g/dL (31.6-35.5); Mean Corpuscular Hemoglobin 35.3 pg (28.0-33.3); Mean Corpuscular Volume 107.2 fL (83.0-100.0); Mean Platelet Volume 10.2 fL (9.4-12.4); Monocytes # 0.4 K/mcL (0.0-1.3); Neutrophils # 2.7 K/mcL (1.6-8.9); Platelet Count 183 K/mcL (140-400); Red Blood Count 4.56 M/mcL (4.19-5.50); Red Cell Distribution Width 19.3 % (11.5-14.5); Segmented Neutrophils % 67.4 %
[2021-01-09 07:26] LABS: Hemoglobin 16.1 g/dL (12.9-16.9)
[2021-01-09 07:28] LABS: Alanine Aminotransferase 20 Units/L (7-52); Albumin/Globulin Ratio 1.2 (1.1-2.2); Alkaline Phosphatase 194 Units/L (34-104); Aspartate Amino Transferase 27 Units/L (13-39); BUN/Creatinine Ratio 23 (6-26); Bilirubin,Direct 1.5 mg/dL (0.0-0.2); Bilirubin,Indirect 2.4 mg/dL (0.0-1.0); Bilirubin,Total 3.9 mg/dL (0.3-1.0); Blood Urea Nitrogen 21 mg/dL (6-20); Carbon Dioxide 22 mEq/L (23-29); Chloride 103 mEq/L (98-107); Globulin 2.6 g/dL (2.4-3.5); Glucose 79 mg/dL (70-105); Osmolality,Calculated 278 (280-300); Potassium 3.3 mEq/L (3.5-5.1); Sodium 133 mEq/L (136-145); Total Protein 5.6 g/dL (6.4-8.9); eGFR For African Americans > 60 (> 60); eGFR For Non-African Americans > 60 (> 60)
[2021-01-09] MEDS: atenoloL 50 MG TABLET PO SCH (07:32)
[2021-01-09] MEDS: clonazePAM 0.5 MG TABLET PO SCH ×2 (07:32→19:10)
[2021-01-09] MEDS ORDERED: Isovue-370 500 ML BOTTLE IVP ONE ×2 (07:46→16:00)
[2021-01-09] MEDS ORDERED: Potassium Chloride Elixir 20 MEQ/15 ML UDC PO ONE (12:59)
[2021-01-09 13:43] LABS: Hematocrit 45.3 % (37.5-50.1); Hemoglobin 15.4 g/dL (12.9-16.9)
[2021-01-09 15:11] LABS: Immunoglobulin G Subclass 1 591 mg/dL (240-1118); Immunoglobulin G Subclass 2 391 mg/dL (124-549); Immunoglobulin G Subclass 3 32 mg/dL (21-134); Immunoglobulin G Subclass 4 104 mg/dL (1-123); Liver-Kidney Microsome-1 IgG 0.9 U (0.0-24.9)
[2021-01-09] MEDS: atenoloL 25 MG TABLET PO SCH (19:10)
[2021-01-09 21:20] LABS: Hematocrit 50.5 % (37.5-50.1); Hemoglobin 16.7 g/dL (12.9-16.9)
[2021-01-10] MEDS: atenoloL 50 MG TABLET PO SCH (06:49)
[2021-01-10] MEDS: clonazePAM 0.5 MG TABLET PO SCH ×2 (08:18→18:53)
[2021-01-10 13:07] LABS: Smooth Muscle Ab Titer IgG 1:20 (<1:20)
[2021-01-10 16:21] LABS: Basophils % 0.7 %; Eosinophils # 0.1 K/mcL (0.0-0.6); Eosinophils % 2.2 %; Hemoglobin 16.5 g/dL (12.9-16.9); Immature Granulocytes % 0.4 % (0-4); Lymphocytes # 0.7 K/mcL (0.6-4.6); Lymphocytes % 16.6 %; Mean Corpuscular Hemoglobin 34.4 pg (28.0-33.3); Mean Corpuscular Volume 104.2 fL (83.0-100.0); Monocytes # 0.6 K/mcL (0.0-1.3); Platelet Count 185 K/mcL (140-400); Segmented Neutrophils % 67.1 %; White Blood Count 4.5 K/mcL (4.3-11.1)
[2021-01-10 16:28] LABS: INR 1.6; Prothrombin Time 18.3 Seconds (9.4-12.1)
[2021-01-10 16:31] LABS: Activated Partial Thrombo Time 34.9 Seconds (26.0-36.0)
[2021-01-10 16:43] LABS: Alanine Aminotransferase 22 Units/L (7-52); Albumin 3.2 g/dL (3.5-5.7); Albumin/Globulin Ratio 1.2 (1.1-2.2); Alkaline Phosphatase 201 Units/L (34-104); Aspartate Amino Transferase 33 Units/L (13-39); BUN/Creatinine Ratio 25 (6-26); Bilirubin,Direct 1.1 mg/dL (0.0-0.2); Bilirubin,Indirect 1.9 mg/dL (0.0-1.0); Blood Urea Nitrogen 21 mg/dL (6-20); Calcium 8.4 mg/dL (8.6-10.3); Carbon Dioxide 24 mEq/L (23-29); Chloride 105 mEq/L (98-107); Globulin 2.6 g/dL (2.4-3.5); Glucose 108 mg/dL (70-105); Osmolality,Calculated 284 (280-300); Potassium 3.8 mEq/L (3.5-5.1); Sodium 135 mEq/L (136-145); Total Protein 5.8 g/dL (6.4-8.9); eGFR For African Americans > 60 (> 60); eGFR For Non-African Americans > 60 (> 60)
[2021-01-10] MEDS: atenoloL 25 MG TABLET PO SCH (18:53)
[2021-01-10 22:25] VITALS: O2SAT 93
[2021-01-11 06:17] VITALS: BP 98/67; PULSE 71; TEMP 97.5
[2021-01-11] MEDS: atenoloL 50 MG TABLET PO SCH (06:17)
[2021-01-11 06:45] LABS: Basophils % 0.8 %; Eosinophils # 0.1 K/mcL (0.0-0.6); Eosinophils % 2.9 %; Hematocrit 53.6 % (37.5-50.1); Hemoglobin 17.3 g/dL (12.9-16.9); Immature Granulocytes % 0.5 % (0-4); Lymphocytes # 0.8 K/mcL (0.6-4.6); Lymphocytes % 21.1 %; Mean Corpuscular HGB Conc 32.3 g/dL (31.6-35.5); Mean Corpuscular Hemoglobin 34.3 pg (28.0-33.3); Mean Corpuscular Volume 106.1 fL (83.0-100.0); Mean Platelet Volume 10.3 fL (9.4-12.4); Monocytes # 0.6 K/mcL (0.0-1.3); Monocytes % 16.6 %; Neutrophils # 2.2 K/mcL (1.6-8.9); Platelet Count 178 K/mcL (140-400); Red Blood Count 5.05 M/mcL (4.19-5.50); Red Cell Distribution Width 20.2 % (11.5-14.5); Segmented Neutrophils % 58.1 %; White Blood Count 3.8 K/mcL (4.3-11.1)
[2021-01-11 07:02] LABS: Alanine Aminotransferase 20 Units/L (7-52); Albumin/Globulin Ratio 1.2 (1.1-2.2); Alkaline Phosphatase 187 Units/L (34-104); Aspartate Amino Transferase 31 Units/L (13-39); BUN/Creatinine Ratio 28 (6-26); Bilirubin,Direct 0.9 mg/dL (0.0-0.2); Bilirubin,Indirect 1.8 mg/dL (0.0-1.0); Bilirubin,Total 2.7 mg/dL (0.3-1.0); Blood Urea Nitrogen 23 mg/dL (6-20); Calcium 8.3 mg/dL (8.6-10.3); Carbon Dioxide 21 mEq/L (23-29); Chloride 106 mEq/L (98-107); Globulin 2.6 g/dL (2.4-3.5); Glucose 91 mg/dL (70-105); Osmolality,Calculated 279 (280-300); Potassium 4.1 mEq/L (3.5-5.1); Sodium 133 mEq/L (136-145); Total Protein 5.6 g/dL (6.4-8.9); eGFR For African Americans > 60 (> 60); eGFR For Non-African Americans > 60 (> 60)
[2021-01-11] MEDS: clonazePAM 0.5 MG TABLET PO SCH (07:16)
[2021-01-15 17:51] LABS: C282Y Hemochromatosis Mutation HOMOZYGOUS; H63D Hemochromatosis Mutation NEGATIVE; HFE Specimen Type WHOLE BLOOD; S65C Hemochromatosis Mutation NEGATIVE
== END 2021-01-11 09:40 | disposition short-term general hospital (02) ==
LOC: 3ANU 10:27 → EMEROOARM 10:27 → SUATTDRO 21:09 → 3ANU 21:17
PROVIDERS: ADMIT Student in an Organized Health Care Education/Training Program; ATTEND Internal Medicine

== ENCOUNTER 2021-12-07 08:31 | Inpatient (IN) ==
[2021-12-07] MEDS ORDERED: *HR* Adenosine 6 MG/2 ML VIAL IVP ONE ×2 (08:37→08:45)
[2021-12-07 08:54] LABS: Basophils % 0.6 %; Eosinophils # 0.2 K/mcL (0.0-0.6); Eosinophils % 2.9 %; Hematocrit 60.4 % (37.5-50.1); Hemoglobin 20.8 g/dL (12.9-16.9); Immature Granulocytes % 0.3 % (0-4); Lymphocytes # 2.4 K/mcL (0.6-4.6); Lymphocytes % 38.1 %; Mean Corpuscular HGB Conc 34.4 g/dL (31.6-35.5); Mean Corpuscular Volume 101.7 fL (83.0-100.0); Mean Platelet Volume 11.8 fL (9.4-12.4); Monocytes # 0.7 K/mcL (0.0-1.3); Neutrophils # 2.9 K/mcL (1.6-8.9); Platelet Count 151 K/mcL (140-400); Red Blood Count 5.94 M/mcL (4.19-5.50); Segmented Neutrophils % 47.1 %; White Blood Count 6.2 K/mcL (4.3-11.1)
[2021-12-07] MEDS ORDERED: 0.9 % Sodium Chloride 500 ML IVC ONE (09:01)
[2021-12-07 13:41] LABS: INR 1.2; Prothrombin Time 13.8 Seconds (9.4-12.1)
[2021-12-07] MEDS ORDERED: *HR* LORazepam 2 MG/ML VIAL IVP ONE (13:42)
[2021-12-07 13:44] LABS: Activated Partial Thrombo Time 27.6 Seconds (26.0-36.0)
[2021-12-07 14:03] LABS: Alanine Aminotransferase 72 Units/L (7-52); Albumin 3.3 g/dL (3.5-5.7); Albumin/Globulin Ratio 1.1 (1.1-2.2); Alkaline Phosphatase 244 Units/L (34-104); Aspartate Amino Transferase 68 Units/L (13-39); BUN/Creatinine Ratio 26 (6-26); Bilirubin,Direct 0.6 mg/dL (0.0-0.2); Bilirubin,Total 1.6 mg/dL (0.3-1.0); Blood Urea Nitrogen 25 mg/dL (6-20); Calcium 8.4 mg/dL (8.6-10.3); Carbon Dioxide 25 mEq/L (23-29); Chloride 102 mEq/L (98-107); Glucose 99 mg/dL (70-105); Lipase 27 Units/L (11-82); Osmolality,Calculated 276 (280-300); Potassium 6.3 mEq/L (3.5-5.1); Sodium 131 mEq/L (136-145); Thyroid Stimulating Hormone 2.921 mcIU/mL (0.340-5.600); Total Protein 6.3 g/dL (6.4-8.9); Troponin I 0.05 ng/mL (< 0.04)
[2021-12-07] MEDS ORDERED: 0.9 % Sodium Chloride 1,000 ML IVC ONE (14:06)
[2021-12-07] MEDS ORDERED: *HR* Enoxaparin 40 MG/0.4 ML SYRINGE SQ SCH (15:03)
[2021-12-07] MEDS ORDERED: Naloxone 0.4 MG/ML INJ IVP PRN (15:03)
[2021-12-07] MEDS ORDERED: Acetaminophen 325 MG TABLET PO PRN (15:03)
[2021-12-07] MEDS ORDERED: Ondansetron 4 MG/2 ML VIAL IVP PRN (15:03)
[2021-12-07] MEDS ORDERED: *HR* Heparin 5,000 UNIT/ML VIAL IVP PRN ×2 (15:18)
[2021-12-07] MEDS ORDERED: *HR* Heparin 5,000 UNIT/ML VIAL IVP ONE ×2 (15:18→19:45)
[2021-12-07 17:27] LABS: Hematocrit 56.9 % (37.5-50.1); Hemoglobin 19.6 g/dL (12.9-16.9); Immature Platelets 8.9 % (1.1-6.1); Mean Corpuscular HGB Conc 34.4 g/dL (31.6-35.5); Mean Corpuscular Hemoglobin 35.1 pg (28.0-33.3); Mean Corpuscular Volume 101.8 fL (83.0-100.0); Mean Platelet Volume 11.1 fL (9.4-12.4); Red Blood Count 5.59 M/mcL (4.19-5.50)
[2021-12-07 17:47] LABS: BUN/Creatinine Ratio 26 (6-26); Blood Urea Nitrogen 26 mg/dL (6-20); Carbon Dioxide 21 mEq/L (23-29); Chloride 102 mEq/L (98-107); Glucose 130 mg/dL (70-105); Osmolality,Calculated 279 (280-300); Potassium 5.9 mEq/L (3.5-5.1); Sodium 131 mEq/L (136-145)
[2021-12-07 17:49] LABS: Troponin I 0.05 ng/mL (< 0.04)
[2021-12-07] MEDS: DilTIAZem 50 MG/50 ML IV.SOLN IVC SCH (18:14)
[2021-12-07 18:35] LABS: Heparin anti-factor XA UFH < 0.04 IU/mL (0.30-0.70); INR 1.3; Prothrombin Time 14.2 Seconds (9.4-12.1)
[2021-12-07] MEDS: 0.9 % Sodium Chloride 1,000 ML IVC SCH ×2 (18:56→20:10)
[2021-12-07] MEDS ORDERED: *HR* Dextrose 50 % in Water (Syg) 50 ML SYRINGE IVP ONE (19:02)
[2021-12-07] MEDS ORDERED: Insulin Human Regular 10 UNIT in 0.9 % Sodium Chloride 10 ML IV ONE (19:02)
[2021-12-07] MEDS: Aspirin Enteric Coated 81 MG Tablet PO SCH (19:52)
[2021-12-07] MEDS: Metoprolol XL (24 HR) Succ 25 MG TAB.ER.24H PO SCH ×2 (19:53→23:11)
[2021-12-07] MEDS: Heparin 25,000UNIT/250ML 1/2NS 25,000 UNIT/250 ML IV.SOLN IVC SCH (19:53)
[2021-12-08 03:47] LABS: Hemoglobin 18.3 g/dL (12.9-16.9); Immature Platelets 9.5 % (1.1-6.1); Mean Corpuscular HGB Conc 35.2 g/dL (31.6-35.5); Mean Corpuscular Hemoglobin 34.7 pg (28.0-33.3); Mean Corpuscular Volume 98.7 fL (83.0-100.0); Platelet Count 121 K/mcL (140-400); Red Blood Count 5.27 M/mcL (4.19-5.50); Red Cell Distribution Width 14.2 % (11.5-14.5); White Blood Count 6.4 K/mcL (4.3-11.1)
[2021-12-08 04:01] LABS: BUN/Creatinine Ratio 24 (6-26); Blood Urea Nitrogen 22 mg/dL (6-20); Calcium 7.7 mg/dL (8.6-10.3); Carbon Dioxide 21 mEq/L (23-29); Chloride 107 mEq/L (98-107); Chol/HDL Ratio 3.6 (0-4.9); Cholesterol 123 mg/dL (< 200); Glucose 84 mg/dL (70-105); HDL Cholesterol 34 mg/dL (40-59); LDL Cholesterol,Calculated 75 mg/dL (< 100); Osmolality,Calculated 281 (280-300); Potassium 4.6 mEq/L (3.5-5.1); Sodium 134 mEq/L (136-145); Triglycerides 70 mg/dL (< 150)
[2021-12-08] MEDS: Metoprolol XL (24 HR) Succ 25 MG TAB.ER.24H PO SCH ×2 (08:03→14:59)
[2021-12-08] MEDS: Aspirin Enteric Coated 81 MG Tablet PO SCH (08:03)
[2021-12-08] MEDS: DilTIAZem 50 MG/50 ML IV.SOLN IVC SCH ×2 (11:17→17:54)
[2021-12-08] MEDS: Heparin 25,000UNIT/250ML 1/2NS 25,000 UNIT/250 ML IV.SOLN IVC SCH (20:45)
[2021-12-09] MEDS: DilTIAZem 50 MG/50 ML IV.SOLN IVC SCH (00:43)
[2021-12-09] MEDS: Metoprolol XL (24 HR) Succ 25 MG TAB.ER.24H PO SCH ×3 (00:43→17:10)
[2021-12-09 05:12] LABS: Hematocrit 53.4 % (37.5-50.1); Hemoglobin 18.3 g/dL (12.9-16.9); Mean Corpuscular HGB Conc 34.3 g/dL (31.6-35.5); Mean Corpuscular Hemoglobin 34.1 pg (28.0-33.3); Mean Corpuscular Volume 99.4 fL (83.0-100.0); Mean Platelet Volume 11.8 fL (9.4-12.4); Platelet Count 133 K/mcL (140-400); Red Blood Count 5.37 M/mcL (4.19-5.50); Red Cell Distribution Width 13.9 % (11.5-14.5); White Blood Count 6.9 K/mcL (4.3-11.1)
[2021-12-09 05:28] LABS: BUN/Creatinine Ratio 31 (6-26); Blood Urea Nitrogen 23 mg/dL (6-20); Carbon Dioxide 18 mEq/L (23-29); Chloride 105 mEq/L (98-107); Glucose 117 mg/dL (70-105); Osmolality,Calculated 281 (280-300); Potassium 3.8 mEq/L (3.5-5.1); Sodium 133 mEq/L (136-145)
[2021-12-09] MEDS ORDERED: Metoprolol XL (24 HR) Succ 25 MG TAB.ER.24H PO SCH (08:00)
[2021-12-09] MEDS: Aspirin Enteric Coated 81 MG Tablet PO SCH (09:39)
[2021-12-09] MEDS: *HR* Rivaroxaban 10 MG TABLET PO SCH (17:10)
[2021-12-10] MEDS: DilTIAZem 50 MG/50 ML IV.SOLN IVC SCH (00:41)
[2021-12-10] MEDS: Metoprolol XL (24 HR) Succ 25 MG TAB.ER.24H PO SCH ×4 (01:49→10:17)
[2021-12-10 06:58] LABS: Hematocrit 56.2 % (37.5-50.1); Hemoglobin 19.5 g/dL (12.9-16.9); Mean Corpuscular HGB Conc 34.7 g/dL (31.6-35.5); Mean Corpuscular Hemoglobin 34.8 pg (28.0-33.3); Mean Corpuscular Volume 100.2 fL (83.0-100.0); Mean Platelet Volume 11.5 fL (9.4-12.4); Platelet Count 147 K/mcL (140-400); Red Blood Count 5.61 M/mcL (4.19-5.50); White Blood Count 7.3 K/mcL (4.3-11.1)
[2021-12-10 06:59] VITALS: BP 115/66; TEMP 96.7
[2021-12-10] MEDS: Aspirin Enteric Coated 81 MG Tablet PO SCH (07:11)
[2021-12-10 07:57] LABS: Calcium 8.2 mg/dL (8.6-10.3)
[2021-12-10 08:04] VITALS: PULSE 112
[2021-12-10] MEDS ORDERED: DilTIAZem CD (24hr) 120 MG CAP.ER.24H PO SCH (10:00)
[2021-12-10 11:08] VITALS: O2SAT 91
[2021-12-10] MEDS: *HR* Rivaroxaban 10 MG TABLET PO SCH (16:34)
== END 2021-12-10 17:35 | disposition home or self-care (01) | DRG 201 ==
LOC: EMEROOARM 08:31 → 2NNU 17:23 → SUATTDRO 17:23 → 2NNU 18:53
PROVIDERS: ADMIT Student in an Organized Health Care Education/Training Program; ATTEND Internal Medicine